=== PATIENT | male | born 1945 | race Caucasian/White ===

== ENCOUNTER 2020-03-04 11:51 | Outpatient (RCR) | payer MEDICARE, BC | END 2020-03-06 | disposition still patient (30) | LOC: WCC 11:51 | DX: L59.8 Other specified disorders of the skin and subcutaneous tissue related to radiation (principal); Z79.899 Other long term (current) drug therapy; E78.5 Hyperlipidemia, unspecified; I10 Essential (primary) hypertension | CPT/HCPCS: G0277; G0463 ==

== ENCOUNTER 2020-03-07 10:18 | Outpatient (RCR) | payer MEDICARE, BC | END 2020-04-06 | disposition home or self-care (01) | LOC: WCC 10:18 | DX: L59.8 Other specified disorders of the skin and subcutaneous tissue related to radiation (principal); E78.5 Hyperlipidemia, unspecified; I10 Essential (primary) hypertension; Z79.899 Other long term (current) drug therapy | CPT/HCPCS: G0277; G0463 ==

== ENCOUNTER 2020-04-08 08:40 | Outpatient (RCR) | payer MEDICARE, BC | END 2020-05-06 | disposition home or self-care (01) | LOC: WCC 08:40 | DX: L59.8 Other specified disorders of the skin and subcutaneous tissue related to radiation (principal); I10 Essential (primary) hypertension; E78.5 Hyperlipidemia, unspecified; Z79.899 Other long term (current) drug therapy | CPT/HCPCS: G0277; G0463 ==